=== PATIENT | female | born 1960 | race Caucasian/White ===

== ENCOUNTER 2020-05-14 05:46 | Emergency (ER) | payer OTHER ==
--- NOTE | 2020-05-14 06:22 | EDM.PDOC ---
ED HPI GENERAL MEDICAL PROBLEM - General Chief Complaint: Genitourinary Problem Stated Complaint: BACK PAIN Time Seen by Provider: 05/14/20 06:22 - History of Present Illness INITIAL COMMENTS - FREE TEXT/NARRATIVE: 59-year-old female presents the emergency room with right back pain. The patient has had problems like this in the past with a urinary tract infection. Patient had hematuria with that episode. She was treated with antibiotics and this resolved. With this episode the patient developed some back pain and and some burning and frequency back on this is progressed and gotten worse. She has not had any hematuria with this. The patient may have had some chills the last day or 2. This pain has not been aggravated by eating. She has not had any constipation or diarrhea. Right Flank Pain Score (Numeric/FACES): 10 - Related Data Allergies Allergy/AdvReac Type Severity Reaction Status Date / Time No Known Allergies Allergy Verified 05/14/20 05:55 Home Meds: Home Meds Acetaminophen/HYDROcodone [[place] 325-5 MG] 1 tab PO Q4H PRN #15 tablet 05/14/20 [Rx] Biotin 5 mg PO DAILY 05/14/20 [History] Calcium Carb, Citrate/Vit D3 [Calcium + D3 ER Tablet] 1 tab PO DAILY 05/14/20 [ History] Cefuroxime Axetil [Ceftin] 500 mg PO Q12H #14 tablet 05/14/20 [Rx] Cyanocobalamin/Folic AC/Vit B6 [Folbee] 1 tab PO MOWEFR 05/14/20 [History] Escitalopram [Lexapro] 20 mg PO DAILY 05/14/20 [History] Multivitamin [Multivitamins] 1 tab PO DAILY 05/14/20 [History] Omeprazole 20 mg PO DAILY 05/14/20 [History] Ondansetron [Zofran ODT] 4 mg PO Q6H PRN #10 tab.dis 05/14/20 [Rx] Pantoprazole [ProTONIX IV] 40 mg PO DAILY 05/14/20 [History] buPROPion [buPROPion XL] 150 mg PO BID 05/14/20 [History] Past Medical History - Past Surgical History HEENT Surgical History: Reports: Tonsillectomy GI Surgical History: Reports: Appendectomy, Bariatric Procedure, Other (See Below) Other GI Surgeries/Procedures: tummy tuck Female Surgical History: Reports: Hysterectomy, Other (See Below) Other Female Surgeries/Procedures: bladder lift, breast lift Social & Family History - Tobacco Use Smoking Status *Q: Never Smoker Second Hand Smoke Exposure: No - Caffeine Use Caffeine Use: Reports: Coffee - Recreational Drug Use Recreational Drug Use: No ED ROS GENERAL - Review of Systems Review Of Systems: See Below Constitutional: Reports: Chills HEENT: Reports: No Symptoms Respiratory: Reports: No Symptoms Cardiovascular: Reports: No Symptoms GI/Abdominal: Reports: Abdominal Pain. Denies: Constipation, Diarrhea, Nausea, Vomiting : Reports: Dysuria, Flank Pain, Frequency, Urgency Musculoskeletal: Reports: Back Pain Skin: Reports: No Symptoms Neurological: Reports: No Symptoms ED EXAM, GI/ABD - Physical Exam Exam: See Below Exam Limited By: No Limitations General Appearance: Alert, No Apparent Distress Head: Atraumatic, Normocephalic Neck: Normal Inspection, Supple, Non-Tender, Full Range of Motion Respiratory/Chest: No Respiratory Distress, Lungs Clear, Normal Breath Sounds Cardiovascular: Normal Peripheral Pulses, Regular Rate, Rhythm, No Edema GI/Abdominal Exam: Normal Bowel Sounds, Soft, No Mass, Tender (Patient has right -sided abdominal discomfort really significant in the right upper quadrant area and it seems to be fairly superficial). No: Non-Tender Back Exam: Normal Inspection, CVA Tenderness (R). No: CVA Tenderness (L) Extremities: Normal Inspection, No Pedal Edema Neurological: Alert, Oriented, Normal Cognition Course - Vital Signs Last Recorded V/S: Last Vital Signs Temp 36.3 C 05/14/20 05:58 Pulse 78 05/14/20 05:58 Resp 16 05/14/20 05:58 BP 179/88 H 05/14/20 05:58 Pulse Ox 99 05/14/20 05:58 - Orders/Labs/Meds Orders: Active Orders 24 hr Category Date Time Status CULTURE URINE [RM] Stat Lab 05/14/20 06:11 Received cefTRIAXone [Rocephin] 2 gm Med 05/14/20 07:35 Active Sodium Chloride 0.9% [Normal Saline] 100 ml IV ONETIME Medication Orders Ceftriaxone Sodium 2 gm/ (Sodium Chloride) 100 mls @ 200 mls/hr IV ONETIME ONE Stop: 05/14/20 08:04 Labs: Laboratory Tests 05/14/20 05/14/20 05/14/20 Range/Units 06:11 06:45 06:45 WBC 15.80 H (3.98-10.04) K/mm3 RBC 4.47 (3.98-5.22) M/mm3 Hgb 12.1 (11.2-15.7) gm/dl Hct 39.4 (34.1-44.9) % MCV 88.1 (79.4-94.8) fl MCH 27.1 (25.6-32.2) pg MCHC 30.7 L (32.2-35.5) g/dl RDW Std Deviation 44.4 (36.4-46.3) fL Plt Count 208 (182-369) K/mm3 MPV 10.4 (9.4-12.3) fl Neut % (Auto) 89.0 H (34.0-71.1) % Lymph % (Auto) 3.5 L (19.3-51.7) % [place] % (Auto) 7.2 (4.7-12.5) % Eos % (Auto) 0 L (0.7-5.8) Baso % (Auto) 0.1 (0.1-1.2) % Neut # (Auto) 14.08 H (1.56-6.13) K/mm3 Lymph # (Auto) 0.55 L (1.18-3.74) K/mm3 [place] # (Auto) 1.13 H (0.24-0.36) K/mm3 Eos # (Auto) 0.00 L (0.04-0.36) K/mm3 Baso # (Auto) 0.01 (0.01-0.08) K/mm3 Manual Slide Review Sodium 141 (136-145) mEq/L Potassium 4.1 (3.5-5.1) mEq/L Chloride 104 (98-107) mEq/L Carbon Dioxide 27 (21-32) mEq/L Anion Gap 14.1 (5-15) BUN 18 (7-18) mg/dL Creatinine 1.3 H (0.55-1.02) mg/dL Est Cr Clr Drug Dosing 46.42 mL/min Estimated GFR (MDRD) 42 (>60) mL/min BUN/Creatinine Ratio 13.8 L (14-18) Glucose 150 H (74-106) mg/dL Calcium 9.7 (8.5-10.1) mg/dL Total Bilirubin 1.0 (0.2-1.0) mg/dL AST 18 (15-37) U/L ALT 30 (14-59) U/L Alkaline Phosphatase 88 (46-116) U/L Total Protein 7.3 (6.4-8.2) g/dl Albumin 3.7 (3.4-5.0) g/dl Globulin 3.6 gm/dL Albumin/Globulin Ratio 1.0 (1-2) Urine Color Yellow (Yellow) Urine Appearance Cloudy H (Clear) Urine pH 7.0 (5.0-8.0) Ur Specific [place] 1.025 (1.005-1.030) Urine Protein 2+ H (Negative) Urine Glucose (UA) Negative (Negative) Urine Ketones Negative (Negative) Urine Occult Blood 2+ H (Negative) Urine Nitrite Negative (Negative) Urine Bilirubin Negative (Negative) Urine Urobilinogen 0.2 (0.2-1.0) Ur Leukocyte Esterase 2+ H (Negative) Urine RBC 30-40 H (0-5) /hpf Urine WBC >100 H (0-5) /hpf Ur Squamous Epith Cells 0-5 (0-5) /hpf Amorphous Sediment Few H (NOT SEEN) /hpf Urine Bacteria Moderate H (FEW) /hpf Urine Mucus Not seen (FEW) /hpf Meds: Medications Generic Name Dose Route Start Last Admin Trade Name Freq PRN Reason Stop Dose Admin Ceftriaxone Sodium 2 gm/ 100 mls @ 200 mls/hr 05/14/20 07:35 Sodium Chloride IV 05/14/20 08:04 ONETIME ONE Discontinued Medications Generic Name Dose Route Start Last Admin Trade Name Freq PRN Reason Stop Dose Admin Hydromorphone HCl 0.5 mg 05/14/20 07:42 Dilaudid IVPUSH 05/14/20 07:43 ONETIME ONE - Re-Assessments/Exams Free Text/Narrative Re-Assessment/Exam: 05/14/20 07:48 Patient's chemistries are from most part unremarkable except her creatinine is 1.3. Urine is strongly suggestive of infectious process. We will give her 2 g of Rocephin then anticipate starting her on Ceftin 500 mg twice daily for another 7 days. With her abdominal exam I am little concerned with the right- sided discomfort I am and recommend that she follow-up with her regular provider at the end of this week or early next week for recheck and if she still having some right upper quadrant discomfort they should give strong consideration to checking a gallbladder ultrasound 05/14/20 07:58 We will give a half a milligram of Dilaudid for her discomfort. Departure - Departure Time of Disposition: 08:00 Disposition: Home, Self-Care 01 Clinical Impression: Pyelonephritis - Discharge Information Referrals: George Coker MD [Primary Care Provider] - Forms: ED Department Discharge Additional Instructions: Return to the emergency room with any questions problems or worsening symptoms. Start the antibiotics tomorrow first thing in the morning. While taking the antibiotics try and hold off taking the omeprazole. As this has the potential to decrease the absorption of the antibiotic. Use the pain medication as needed for discomfort 1 every 4 hours. Allow 12 hours after using this medication before driving or returning to work. Use the Zofran, this is the nausea medication, it will absorb on or under your tongue use every 6 hours only if needed for nausea and vomiting. Push lots of fluids Follow-up with your physician at the end of this week or the first part of next week if you are still having considerable abdominal discomfort consider having a gallbladder ultrasound checked. Sepsis Event Note (ED) - Evaluation Sepsis Screening Result: No Definite Risk - Focused Exam Vital Signs: Vital Signs Temp Pulse Resp BP Pulse Ox 05/14/20 05:58 36.3 C 78 16 179/88 H 99 - My Orders Last 24 Hours: My Active Orders 05/14/20 06:11 CULTURE URINE [RM] Stat 05/14/20 07:35 cefTRIAXone [Rocephin] 2 gm Sodium Chloride 0.9% [Normal Saline] 100 ml IV ONETIME - Assessment/Plan Last 24 Hours: My Active Orders 05/14/20 06:11 CULTURE URINE [RM] Stat 05/14/20 07:35 cefTRIAXone [Rocephin] 2 gm Sodium Chloride 0.9% [Normal Saline] 100 ml IV ONETIME
[2020-05-14] MEDS ORDERED: cefTRIAXone 2 GM in Sodium Chloride 0.9% 100 ML IV ONE (07:35)
[2020-05-14] MEDS ORDERED: HYDROmorphone 0.5 MG/0.5 ML Syringe IVPUSH ONE (07:42)
== END 2020-05-14 08:28 | disposition home or self-care (01) ==
LOC: JD.ED 05:46
DX: N12 Tubulo-interstitial nephritis, not specified as acute or chronic (principal); Z79.899 Other long term (current) drug therapy; Z90.89 Acquired absence of other organs; Z90.710 Acquired absence of both cervix and uterus
CPT/HCPCS: 36415; 80053; 81001; 85025; 87086; 87088; 87186; 96365; 96375; 99284; J0696; J1170; J7050; 99283

== ENCOUNTER 2020-05-15 17:58 | Emergency (ER) | payer OTHER ==
[2020-05-15] MEDS ORDERED: Sodium Chloride 0.9% 1,000 ML IV ONE ×2 (18:56→20:33)
[2020-05-15] MEDS ORDERED: Sodium Chloride 0.9% 10 ML Syringe FLUSH PRN (18:58)
[2020-05-15] MEDS ORDERED: Ketorolac 30 MG/ML SDV IVPUSH ONE (18:58)
[2020-05-15] MEDS ORDERED: HYDROmorphone 0.5 MG/0.5 ML Syringe IVPUSH ONE ×2 (18:59→20:53)
--- NOTE | 2020-05-15 19:17 | EDM.PDOC ---
<Jeni Crawford Maeve - Last Filed: 05/15/20 20:51> ED HPI GENERAL MEDICAL PROBLEM - General Chief Complaint: Genitourinary Problem Stated Complaint: KIDNEY INFECTION NOT GETTING BETTER Time Seen by Provider: 05/15/20 18:13 Source of Information: Reports: Patient, RN Notes Reviewed History Limitations: Reports: No Limitations - History of Present Illness INITIAL COMMENTS - FREE TEXT/NARRATIVE: Patient is a 59-year-old female who presents to the ED for the evaluation of her ongoing kidney infection/UTI. Patient was evaluated by Dr. Coyle, in the [facility] morning hours of 05/14/2028, was diagnosed with a pyelonephritis by urinalysis and lab work. Patient did not have any imaging done at this time. Patient was given 2 g of Rocephin, a prescription for outpatient antibiotics, Ceftin, pain meds and nausea meds and was discharged home. Patient notes that nothing is really got much better, she went to the walk-in clinic today for ongoing issues and he sent her here for further evaluation. Her urinalysis done at the walk-in clinic still shows quite a bit of white blood cells in the urine, and many bacteria. She states that she still having 10 out of 10 pain to the left flank/abdomen, is having some mild nausea also has a fever of 101.4 F. Patient denies any other sick-like symptoms, cough/shortness of breath, chest pain. Patient states that it still does hurt when she pees, she states it brown quite a bit. Right Flank Pain Score (Numeric/FACES): 10 - Related Data Allergies Allergy/AdvReac Type Severity Reaction Status Date / Time aspirin Allergy Mild Other Verified 05/16/20 13:32 Home Meds: Home Meds Acetaminophen/HYDROcodone [[place] 325-5 MG] 1 tab PO Q4H PRN #15 tablet 05/14/20 [Rx] Biotin 5 mg PO DAILY 05/14/20 [History] Calcium Carb, Citrate/Vit D3 [Calcium + D3 ER Tablet] 1 tab PO DAILY 05/14/20 [History] Cefuroxime Axetil [Ceftin] 500 mg PO Q12H #14 tablet 05/14/20 [Rx] Cyanocobalamin/Folic AC/Vit B6 [Folbee] 1 tab PO MOWEFR 05/14/20 [History] Escitalopram [Lexapro] 20 mg PO DAILY 05/14/20 [History] Multivitamin [Multivitamins] 1 tab PO DAILY 05/14/20 [History] Ondansetron [Zofran ODT] 4 mg PO Q6H PRN #10 tab.dis 05/14/20 [Rx] buPROPion [buPROPion XL] 150 mg PO BID 05/14/20 [History] Pantoprazole Sodium [Protonix] 40 mg PO DAILY 05/15/20 [History] Past Medical History - Past Surgical History HEENT Surgical History: Reports: Tonsillectomy GI Surgical History: Reports: Appendectomy, Bariatric Procedure, Other (See Below) Other GI Surgeries/Procedures: tummy tuck Female Surgical History: Reports: Hysterectomy, Other (See Below) Other Female Surgeries/Procedures: bladder lift, breast lift Social & Family History - Tobacco Use Smoking Status *Q: Never Smoker - Caffeine Use Caffeine Use: Reports: Coffee, Soda, Tea - Recreational Drug Use Recreational Drug Use: No ED ROS GENERAL - Review of Systems Review Of Systems: See Below Constitutional: Reports: Fever, Decreased Appetite. Denies: Chills Respiratory: Denies: Shortness of Breath, Cough Cardiovascular: Denies: Chest Pain GI/Abdominal: Reports: Nausea. Denies: Abdominal Pain, Constipation, Diarrhea, Vomiting : Reports: Flank Pain (left flank and mild right flank pain) Musculoskeletal: Reports: Back Pain (left mid back, near kidney) ED EXAM, RENAL/ - Physical Exam Exam: See Below Exam Limited By: No Limitations General Appearance: Alert, WD/WN, No Apparent Distress Eye Exam: Bilateral Eye: EOMI, Normal Inspection, PERRL Respiratory/Chest: No Respiratory Distress, Lungs Clear, Normal Breath Sounds, No Accessory Muscle Use, Chest Non-Tender Cardiovascular: Normal Peripheral Pulses, Regular Rate, Rhythm, No Murmur GI/Abdominal: Normal Bowel Sounds, Soft, Non-Tender, No Distention, No Mass Back Exam: Normal Inspection, Full Range of Motion, CVA Tenderness (L), CVA Tenderness (R) Extremities: Normal Inspection, Normal Capillary Refill Neurological: Alert, Oriented, Normal Cognition, No Motor/Sensory Deficits Psychiatric: Normal Affect, Normal Mood Skin Exam: Warm, Dry, Intact, Normal Color, No Rash Course - Re-Assessments/Exams Free Text/Narrative Re-Assessment/Exam: 05/15/20 19:19 Patient presents to the ED for the evaluation of her ongoing UTI/pyelonephritis symptoms. Patient will have an IV placed, with some IV fluids, some pain medications, and she will get a abdomen pelvis CT without contrast for further evaluation as she did not get 1 of these when she was diagnosed with pyelonephritis. This would be to rule out the presence of a kidney stone or not. Patient's urine culture is growing out gram-negative rods, will likely be E. coli. I do not believe that Dr. Coyle put in for Levaquin or ciprofloxacin sensitivities. Nonetheless we will try to await culture results before any antibiotic switch or decision will be made. 05/15/20 20:16 CT is done and demonstrates a markedly dilated right renal pelvis. Finding most likely d/t functional UPJ obstruction. The amount of dilatation puts the patient at risk for injury to the right kidney and urologic referral is recommended. No renal calculi or ureteral calculi are seen. Left kidney appears normal. Other incidental findings. 05/15/20 20:24 I was able to talk with Dr. Jefferson, urologist adjudication specialist at [facility], and he does agree that the patient would likely benefit from transfer for urological referral, and hospitalization at [facility]. I will talk with Dr. Yoo, and get her transferred by ambulance service. Dr. Yoo will have to pick antibiotics, but Dr. Jefferson said Rocephin would be quite appropriate and he would also steer towards gentamicin. 05/15/20 20:51 I did get excepting by Dr. Yoo, but she does want labs redrawn, to rule out or rule in sepsis criteria. Have ordered labs to reflect this. Patient's transfer will be delayed slightly, she will get another liter fluid in the interim. Departure - Departure Time of Disposition: 21:15 Disposition: Home, Self-Care 01 Condition: Good Clinical Impression: Pyelonephritis, Enlarged kidney - Discharge Information *PRESCRIPTION DRUG MONITORING PROGRAM REVIEWED*: No *COPY OF PRESCRIPTION DRUG MONITORING REPORT IN PATIENT SALVADOR: No Referrals: George Coker MD [Primary Care Provider] - Forms: ED Department Discharge Sepsis Event Note (ED) - Evaluation Sepsis Screening Result: No Definite Risk <Loc Pérez - Last Filed: 05/17/20 07:45> Course - Vital Signs Last Recorded V/S: Last Vital Signs Temp 38.6 C H 05/15/20 18:09 Pulse 82 05/15/20 18:09 Resp 20 05/15/20 18:09 BP 141/82 H 05/15/20 18:09 Pulse Ox 96 05/15/20 18:09 - Orders/Labs/Meds Labs: Laboratory Tests 05/15/20 05/15/20 05/15/20 Range/Units 20:48 20:58 20:58 WBC 8.06 (3.98-10.04) K/mm3 RBC 3.73 L (3.98-5.22) M/mm3 Hgb 10.0 L D (11.2-15.7) gm/dl Hct 33.0 L (34.1-44.9) % MCV 88.5 (79.4-94.8) fl MCH 26.8 (25.6-32.2) pg MCHC 30.3 L (32.2-35.5) g/dl RDW Std Deviation 44.7 (36.4-46.3) fL Plt Count 165 L (182-369) K/mm3 MPV 10.7 (9.4-12.3) fl Neutrophils % (Manual) 83 H (40-60) % Band Neutrophils % 0 (0-10) % Lymphocytes % (Manual) 10 L (20-40) % Atypical Lymphs % 0 % Monocytes % (Manual) 7 (2-10) % Eosinophils % (Manual) 0 L (0.7-5.8) % Basophils % (Manual) 0 L (0.1-1.2) Platelet Estimate Adequate Anisocytosis 1+ slight RBC Morph Comment Not Reportable Sodium 140 (136-145) mEq/L Potassium 4.0 (3.5-5.1) mEq/L Chloride 104 (98-107) mEq/L Carbon Dioxide 25 (21-32) mEq/L Anion Gap 15.0 (5-15) BUN 26 H (7-18) mg/dL Creatinine 1.2 H (0.55-1.02) mg/dL Est Cr Clr Drug Dosing 50.29 mL/min Estimated GFR (MDRD) 46 (>60) mL/min BUN/Creatinine Ratio 21.7 H (14-18) Glucose 106 (74-106) mg/dL Lactic Acid 0.7 (0.4-2.0) mmol/L Calcium 8.6 (8.5-10.1) mg/dL Total Bilirubin 0.7 (0.2-1.0) mg/dL AST 14 L (15-37) U/L ALT 21 (14-59) U/L Alkaline Phosphatase 78 (46-116) U/L C-Reactive Protein 28.2 H* (<1.0) mg/dL Total Protein 6.3 L (6.4-8.2) g/dl Albumin 2.6 L (3.4-5.0) g/dl Globulin 3.7 gm/dL Albumin/Globulin Ratio 0.7 L (1-2) Meds: Medications Discontinued Medications Generic Name Dose Route Start Last Admin Trade Name Freq PRN Reason Stop Dose Admin Hydromorphone HCl 0.5 mg 05/15/20 18:59 05/15/20 19:16 Dilaudid IVPUSH 05/15/20 19:00 0.5 mg ONETIME ONE Administration Hydromorphone HCl 0.5 mg 05/15/20 20:53 05/15/20 21:04 Dilaudid IVPUSH 05/15/20 20:54 0.5 mg ONETIME ONE Administration Sodium Chloride 1,000 mls @ 999 mls/hr 05/15/20 18:56 05/15/20 19:12 Normal Saline IV 05/15/20 19:56 999 mls/hr ONETIME ONE Administration Sodium Chloride 1,000 mls @ 999 mls/hr 05/15/20 20:33 05/15/20 20:38 Normal Saline IV 05/15/20 21:33 999 mls/hr BOLUS ONE Administration Ceftriaxone Sodium 2 gm/ 100 mls @ 200 mls/hr 05/15/20 20:52 05/15/20 21:01 Sodium Chloride IV 05/15/20 21:21 200 mls/hr ONETIME ONE Administration Ketorolac Tromethamine 30 mg 05/15/20 18:58 05/15/20 19:13 Toradol IVPUSH 05/15/20 18:59 30 mg ONETIME ONE Administration Sodium Chloride 10 ml 05/15/20 18:58 05/15/20 19:14 Saline Flush FLUSH 10 ml ASDIRECTED PRN Administration Keep Vein Open - Re-Assessments/Exams Free Text/Narrative Re-Assessment/Exam: 05/17/20 07:44: Receipt of a urine culture on this patient that was done on 14 May. She was growing out Enterobacter cloacae at 70-80,000 colony-forming units per mL. It is resistant to ampicillin sulbactam subfalcian and ceftaz edema. Was also resistant to nitrofurantoin. We will patient was sent to [facility] urology services due to significant dilated right renal pelvis suggesting UPJ obstruction. The culture report will be sent to [facility].
--- NOTE | 2020-05-15 19:48 | CT ---
CT abdomen and pelvis Technique: Multiple axial sections were obtained from above the dome of the diaphragm inferiorly through the pubic symphysis. Intravenous and oral contrast not utilized. Comparison: No prior abdominal imaging is available. Findings: Markedly dilated right renal pelvis is noted. No etiology is seen for this finding and findings most likely are due to a UPJ obstruction on a functional basis. No ureteral dilatation or ureteral stone is seen. Left kidney shows no hydronephrosis. Visualized lung bases show nothing acute. Noncontrast appearance of the liver shows no discrete abnormality. Spleen appears within normal limits. Pancreas shows no discrete abnormality. Prior stomach surgery is noted. Gallbladder shows several small calcified gallstones. Aorta shows atherosclerotic change without aneurysm. No retroperitoneal adenopathy or mesenteric abnormalities are seen. No pelvic mass or adenopathy is noted. No free fluid or inflammatory change is seen. Appendix not definitely visualized. Bone window settings were reviewed which shows mild scoliosis within the spine with slight degenerative change within the lower thoracic spine. Impression: 1. Markedly dilated right renal pelvis. Findings are most likely due to functional UPJ obstruction. The amount of dilatation puts the patient at risk for injury to the right kidney and urologic referral is recommended. 2. No renal calculi or ureteral calculi are seen. Left kidney appears normal. 3. Other findings believed to be incidental as described above. No other acute finding is seen. Diagnostic code #5 Study was dictated in MDT
[2020-05-15] MEDS ORDERED: cefTRIAXone 2 GM in Sodium Chloride 0.9% 100 ML IV ONE (20:52)
== END 2020-05-15 21:45 | disposition home or self-care (01) ==
LOC: JD.ED 17:58
DX: N12 Tubulo-interstitial nephritis, not specified as acute or chronic (principal); N28.81 Hypertrophy of kidney; Z88.6 Allergy status to analgesic agent; Z79.899 Other long term (current) drug therapy
CPT/HCPCS: 36415; 74176; 80053; 83605; 85007; 85027; 86140; 87040; 96365; 96375; 96376; 99285; J0696; J1170; J1885; J7030; J7050

== ENCOUNTER 2022-07-15 17:55 | Emergency (ER) | payer OTHER ==
[2022-07-15] MEDS ORDERED: Sodium Chloride 0.9% 10 ML Syringe FLUSH PRN ×2 (18:27→20:07)
[2022-07-15] MEDS ORDERED: Sodium Chloride 0.9% 1,000 ML IV STA (18:50)
[2022-07-15] MEDS ORDERED: Ondansetron 4 MG/2 ML SDV IVPUSH ONE (18:50)
[2022-07-15 19:05] LABS: ESTIMATED GFR 72 mL/min (>60)
[2022-07-15] MEDS ORDERED: HYDROmorphone 0.5 MG/0.5 ML Syringe IVPUSH ONE (19:13)
[2022-07-15] MEDS ORDERED: Iopamidol 612 MG/ML 100 ML Bottle IVPUSH ONE (20:07)
== END 2022-07-15 21:46 | disposition home or self-care (01) ==
LOC: JD.ED 17:55
DX: K59.00 Constipation, unspecified (principal); F17.210 Nicotine dependence, cigarettes, uncomplicated; Z88.8 Allergy status to other drugs, medicaments and biological substances; Z98.84 Bariatric surgery status
CPT/HCPCS: 36415; 74177; 80053; 81001; 85025; 86140; 96361; 96374; 96375; 99284; J1170; J2405; J3490; J7030; Q9967; 99283